=== PATIENT | female | born 1965 | race Caucasian/White ===

== ENCOUNTER 2020-12-14 06:58 | Emergency (ER) | payer BC, OTHER ==
[2020-12-14 07:08] VITALS: BP 140/87; PULSE 88; TEMP 98.7; BMI 22.2
== END 2020-12-14 08:53 | disposition home or self-care (01) ==
LOC: FER 06:58
DX: S93.401A Sprain of unspecified ligament of right ankle, initial encounter (principal); X50.9XXA Other and unspecified overexertion or strenuous movements or postures, initial encounter
CPT/HCPCS: 73610-TC-RT-FY; 73630-TC-RT-FY; 99283-25